=== PATIENT | female | born 1995 | race Caucasian/White ===

== ENCOUNTER → 2017-01-30 | Outpatient (CLI) | payer MEDICAID ==
--- NOTE | 2017-01-30 15:29 | RADIOLOGY REPORT PS360 ---
US PREG FOLLOWUP SINGLE FETUS, US BIOPHYSICAL PROFILE, SD RATIO UMBILICAL ARTERY: Indication: GROWTH FOR LGA ORDERING PHYSICIAN: Tai Nathan MD PATIENT AGE: 21 years FINDINGS: Single live fetus present in cephalic presentation The following parameters are obtained: Average ultrasound age is 36 weeks 2 days. Estimated due date by ultrasound is 02/25/2017. Estimated weight is 2670 g. This is 41st percentile. There has been adequate progression compared to the previous exam of 10/10/2016 BPD: 37 weeks 1 day OFD: OFD HC: 38 weeks 3 days AC: 35 weeks 2 days FL: 34 weeks 2 days heart rate: 130 bpm. HC/AC: 1.07 Cephalic index: 76% FL/BPD: 73% FL/AC: 21% Amniotic fluid index: 9 cm Qualitative AFV: 2 breathing movements: 2 Gross body movements: 2 Tone: 2 Biophysical profile score: 8/8 Doppler evaluation of the umbilical artery: SD ratio: 2.5 Resistive index: 0.6 No obvious anomalies evident. Placenta: Anterior and grade 1. No previa or abruption Cervix: Appears closed and measures 3 cm IMPRESSION: There is a single live fetus in the cephalic presentation. There has been adequate progression compared to the previous exam. Amniotic fluid index is on lower limits of normal at 9 cm. Biophysical profile is 8 of 8. Unremarkable evaluation of the umbilical artery.
== END ==
LOC: LAB 12:57 → RAD 12:57
DX: O36.63X1 Maternal care for excessive fetal growth, third trimester, fetus 1 (principal)